=== PATIENT | female | born 1945 | race Caucasian/White ===

== ENCOUNTER 2018-03-13 15:47 | Emergency (ER) | payer OTHER, MEDICARE ==
--- OUTSIDE RECORDS SUMMARY | 2018-03-13 15:50 | XMS REPORT | Clinical Summary ---
:1945 Author Organization [facility] Address [address] [place] [address] Care Team Providers Name Role Phone Cortes Velez MD Primary Care Provider Allergies Active Allergy Reactions Severity Noted Date Comments No Known Drug Allergies 11/13/2015 Other reaction(s): NKDA Current Medications Prescription Sig. Disp. Refills Start Date End Date Status vitamin E 400 UNIT Take 400 Active capsule Units by mouth daily. ERGOCALCIFEROL, Take by Active VITAMIN D2, (VITAMIN mouth. D2 ORAL) esomeprazole Take by Active magnesium 22.3 mg mouth. capsule,delayed release(DR/EC) lithium (LITHOBID) Take 2 180 tablet 3 02/08/2017 Active 300 MG CR tablet tablets (600 mg total) by mouth nightly. rosuvastatin TAKE 1 90 tablet 0 03/21/2017 Active (CRESTOR) 10 MG TABLET(10 MG) tablet BY MOUTH EVERY NIGHT [facility] TAKE 1 TABLET 90 tablet 0 03/21/2017 Active 2.5-25-2 mg tablet BY MOUTH EVERY DAY metFORMIN TAKE 1 TABLET 90 tablet 2 08/04/2017 Active (GLUCOPHAGE) 500 mg BY MOUTH tablet EVERY DAY IBUPROFEN ORAL Take by mouth Active as needed. metFORMIN TAKE 1 90 tablet 0 01/15/2018 Active (GLUCOPHAGE) 500 mg TABLET(500 tablet MG) BY MOUTH EVERY DAY omega-3 acid ethyl TAKE 2 120 capsule 0 02/20/2018 Active esters (LOVAZA) 1 CAPSULES BY gram capsule MOUTH TWICE DAILY escitalopram TAKE 1 TABLET 180 tablet 0 02/22/2018 Active (LEXAPRO) 10 MG BY MOUTH tablet TWICE DAILY lithium (LITHOBID) TAKE 2 180 tablet 0 02/22/2018 Active 300 MG CR tablet TABLETS AT BEDTIME clonAZEPAM DISSOLVE 1 180 tablet 1 02/27/2018 Active (KlonoPIN) 0.25 MG TABLET BY 8 disintegrating MOUTH TWICE tablet DAILY levothyroxine TAKE 1 TABLET 90 tablet 0 03/05/2018 Active (SYNTHROID, LEVOXYL) BY MOUTH 25 mcg tablet EVERY DAY clonAZEPAM DISSOLVE ONE 1 11/27/2015 Discontinued (KlonoPIN) 0.25 MG TABLET ON 7 disintegrating TONGUE TWICE tablet DAILY NEEDED FOLBIC 2.5-25-2 mg TK 1 T PO QD 3 11/26/2015 Discontinued tablet 7 metFORMIN TAKE 1 TABLET 90 tablet 0 07/25/2016 Discontinued (GLUCOPHAGE) 500 MG BY MOUTH 7 tablet EVERY DAY rosuvastatin Take 1 tablet 90 tablet 1 10/04/2016 Discontinued (CRESTOR) 10 MG (10 mg total) 7 tablet by mouth nightly. levothyroxine TAKE 1 TABLET 90 tablet 3 11/02/2016 Discontinued (SYNTHROID, LEVOXYL) BY MOUTH 8 25 mcg tablet EVERY DAY omega-3 acid ethyl TAKE 2 120 capsule 3 12/08/2016 Discontinued esters (LOVAZA) 1 CAPSULE BY 7 gram capsule MOUTH TWICE DAILY QUEtiapine Take 2 180 tablet 2 02/08/2017 Discontinued (SEROquel) 25 MG tablets (50 8 tablet mg total) by mouth nightly for 90 days. TK 1 T PO QD escitalopram Take 1 tablet 180 tablet 3 02/08/2017 Discontinued (LEXAPRO) 10 MG (10 mg total) 7 tablet by mouth daily. TK 1 T PO BID rosuvastatin TAKE 1 90 tablet 0 03/21/2017 Discontinued (CRESTOR) 10 MG TABLET(10 MG) 7 tablet BY MOUTH EVERY NIGHT omega-3 acid ethyl TAKE 2 120 capsule 3 06/14/2017 Discontinued esters (LOVAZA) 1 CAPSULE BY 7 gram capsule MOUTH TWICE DAILY rosuvastatin TAKE 1 90 tablet 3 06/14/2017 Discontinued (CRESTOR) 10 MG TABLET(10 MG) 8 tablet BY MOUTH EVERY NIGHT metFORMIN Take 1 tablet 90 tablet 1 08/01/2017 Discontinued (GLUCOPHAGE) 500 mg (500 mg 8 tablet total) by mouth once daily. omega-3 acid ethyl TAKE 2 120 capsule 0 09/11/2017 Discontinued esters (LOVAZA) 1 CAPSULES BY 7 gram capsule MOUTH TWICE DAILY clonAZEPAM DISSOLVE ON 180 tablet 1 08/25/2017 (KlonoPIN) 0.25 MG THE TONGUE 1 8 disintegrating TABLET TWICE tablet A DAY escitalopram TAKE 1 TABLET 180 tablet 0 08/29/2017 Discontinued (LEXAPRO) 10 MG BY MOUTH 8 tablet TWICE DAILY omega-3 acid ethyl TAKE 2 360 capsule 0 09/12/2017 Discontinued esters (LOVAZA) 1 CAPSULES BY 8 gram capsule MOUTH TWICE DAILY QUEtiapine TAKE 2 180 tablet 2 10/19/2017 (SEROquel) 25 MG TABLETS BY 8 tablet MOUTH EVERY NIGHT omega-3 acid ethyl TAKE 2 120 capsule 0 11/17/2017 Discontinued esters (LOVAZA) 1 CAPSULES BY 8 gram capsule MOUTH TWICE DAILY escitalopram TAKE 1 TABLET 180 tablet 0 11/26/2017 Discontinued (LEXAPRO) 10 MG BY MOUTH 8 tablet TWICE DAILY levothyroxine TAKE 1 TABLET 90 tablet 0 12/01/2017 Discontinued (SYNTHROID, LEVOXYL) BY MOUTH 8 25 mcg tablet EVERY DAY clonAZEPAM Take 0.25 mg Discontinued (KlonoPIN) 0.25 MG by mouth 2 8 disintegrating (two) times a tablet day as needed for seizures. omega-3 acid ethyl TAKE 2 120 capsule 0 12/15/2017 Discontinued esters (LOVAZA) 1 CAPSULES BY 8 gram capsule MOUTH TWICE DAILY omega-3 acid ethyl TAKE 2 120 capsule 0 01/22/2018 Discontinued esters (LOVAZA) 1 CAPSULES BY 8 gram capsule MOUTH TWICE DAILY Active Problems Problem Noted Date De Quervain's disease (radial styloid tenosynovitis) 11/22/2017 Bipolar disorder 07/08/2016 Hypomania 07/08/2016 Marital dysfunction 07/08/2016 Tremor 07/08/2016 Tardive dyskinesia 07/08/2016 Anemia 11/13/2015 Bipolar affective disorder 11/13/2015 Bipolar 1 disorder 11/13/2015 Cellulitis 11/13/2015 Bipolar 1 disorder, depressed 11/13/2015 Diabetes mellitus 11/13/2015 Fatigue 11/13/2015 Gastroesophageal reflux disease 11/13/2015 Generalized anxiety disorder 11/13/2015 HLD (hyperlipidemia) 11/13/2015 Hypothyroidism 11/13/2015 Low back pain 11/13/2015 Bipolar I disorder with lillian 11/13/2015 Microcytic anemia 11/13/2015 Adiposity 11/13/2015 Pain of upper extremity 11/13/2015 Paronychia 11/13/2015 Major depressive disorder, recurrent episode, moderate 11/13/2015 Controlled type 2 diabetes mellitus without complication 11/13/2015 Encounters Date Type Specialty Care Team Description 03/01/2018 Refill Internal Medicine Cortes Velez MD 02/27/2018 Refill Psychiatry Catracho Joseph MD 02/22/2018 Refill Psychiatry Catracho Joseph MD 02/20/2018 Office Visit Psychiatry Catracho Joseph Bipolar 1 disorder MD Tommy 02/18/2018 Refill Internal Medicine Cortes Velez MD 02/01/2018 Telephone Internal Medicine Cortes Velez MD 01/19/2018 Refill Internal Medicine Cortes Velez MD 01/15/2018 Refill Internal Medicine Cortes Velez MD 01/10/2018 Lab Lab Cortes Velez MD 01/10/2018 Hospital Encounter Radiology Cortes Velez Abnormal mammjoe Nava MD 01/10/2018 Hospital Encounter Radiology Cortes Velez Abnormal mammjoe Nava MD 01/10/2018 Ancillary Orders Internal Medicine Cortes Velez Abnormal mammjoe Nava MD 12/21/2017 Telephone Radiology Benito Ocampo, ANA 12/18/2017 Telephone Radiology Ciara Ambrosio, ANA 12/15/2017 Refill Internal Medicine Cortes Velez MD 12/11/2017 Telephone Radiology Ciara Ambrosio, ANA 12/08/2017 Orders Only Internal Medicine Cortes Velez Abnormal mammogram MD Elijah (Primary Dx) 12/08/2017 Telephone Radiology Ciara Ambrosio RN 12/07/2017 Office Visit Psychiatry Catracho Joseph Bipolar 1 erik Sanders MD 12/07/2017 Hospital Encounter Radiology Cortes Velez Abnormal mammogram MD Elijah 12/07/2017 Hospital Encounter Radiology Cortes Velez Abnormal mammogram MD Elijah 12/07/2017 Ancillary Orders Internal Medicine Cortes Velez Abnormal mammogram MD Elijah 12/01/2017 Refill Internal Medicine Cortes Velez MD 11/26/2017 Refill Psychiatry Catracho Joseph MD 11/22/2017 Office Visit Orthopedic Surgery [place], De Quervain's disease Marie Jacobo, (radial styloid MD tenosynovitis) (Primary Dx) 11/15/2017 Refill Internal Medicine Cortes Velez MD 11/14/2017 Orders Only Internal Medicine Norma Metz, Bipolar affective MA disorder, remission status unspecified (Primary Dx) 11/13/2017 Telephone Internal Medicine Cortes Velez MD 10/19/2017 Office Visit Internal Medicine Cortes Velez Annual physical exam (Primary Dx); MD Elijah Controlled type 2 diabetes mellitus without complication, without long-term current use of insulin; Hypothyroidism, unspecified type; Hyperlipidemia, unspecified hyperlipidemia type; Bipolar 1 disorder; Abnormal mammogram; Vitamin D deficiency 10/18/2017 Refill Psychiatry Catracho Joseph MD 10/12/2017 Office Visit Orthopedic Surgery Nirav, Arthritis of midfoot Rowdy Blackwell MD (Primary Dx) 10/12/2017 Office Visit Orthopedic Surgery [place], De Quervain's tenosynovitis, left (Primary Dx); Marie Jacobo Primary osteoarthritis of first carpometacarpal joint of left hand 10/09/2017 Office Visit Psychiatry Catracho Joseph Bipolar 1 disorderTommy MD depressed 09/26/2017 Office Visit Orthopedic Surgery [place], Thumb pain, left ( Primary Dx); Marie Jacobo De Quervain's disease (tenosynovitis) 09/11/2017 Refill Internal Medicine Cortes Velez MD 08/29/2017 Refill Psychiatry Catracho Joseph MD 08/25/2017 Refill Psychiatry Catracho Joseph MD 08/16/2017 Refill Internal Medicine Cortes Velez MD 08/02/2017 Orders Only Psychiatry Catracho Joseph MD 08/01/2017 Orders Only Internal Medicine Norma Metz MA 07/24/2017 Refill Internal Medicine Cortes Velez MD 06/14/2017 Orders Only Internal Medicine Norma Metz MA 06/14/2017 Refill Psychiatry Catracho Joseph MD 05/30/2017 Refill Psychiatry Catracho Joseph MD 05/04/2017 Office Visit Psychiatry Catracho Joseph Bipolar 1 disorder, MD Tommy depressed 04/19/2017 Office Visit Internal Medicine Cortes Velez Hypothyroidism, unspecified type (Primary Dx); MD Elijah Controlled type 2 diabetes mellitus without complication, without long-term current use of insulin; Hyperlipidemia, unspecified hyperlipidemia type; Bipolar 1 disorder 03/21/2017 Refill Psychiatry Catracho Joseph MD 03/21/2017 Refill Internal Medicine Cortes Velez MD after 03/12/2017 Immunizations Name Dates Previously Given Next Due FLUZONE HIGH-DOSE PF 05/26/2015, 10/16/2014 Pneumococcal Conjugate 13-Valent 10/16/2014 Tdap 02/02/2015 Zoster 09/25/2008 Family History Medical History Relation Name Comments Alcohol abuse Brother nephew Navjot Hughes Alcohol abuse Brother nephew Dennys Hughes Drug abuse Brother My Son Grey Janice Alcohol abuse Father Angel Hughes Depression Maternal Grandfather Dalton Youssef Alcohol abuse Mother Mom Geraldine Hughes Atrial fibrillation Mother Mom Geraldine Hughes Hypertension Mother Mom Geraldine Hughes Alcohol abuse Sister Carlos Hughes Fernandez COPD Sister Carlos Hughes Fernandez Cancer Sister Carlos Hughes Fernandez Depression Sister Carlos Hughes Fernandez Drug abuse Sister Mominlaw Karla Janice Heart attack Son Colon cancer Neg Hx Colon polyps Neg Hx Relation Name Status Comments Brother nephew Navjot Saul Brother nephew Dennys Saul Brother My Son Grey Janice Father Angel Hughes MEDICAL HISTORY UNKNOWN Maternal Grandfather Dalton Youssef Mother Mom Geraldine Youssef Sual Sister Carlos Fernandez Sister Priya Sweeney Son Social History Tobacco Use Types Packs/Day Years Used Date Never Smoker Smokeless Tobacco: Never Used Comments: Never interested. 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 Sex Assigned at Date Recorded Not on file Last Filed Vital Signs Vital Sign Reading Time Taken Blood Pressure 145/93 10/19/2017 1:43 PM [facility] Pulse 77 10/19/2017 1:43 PM [facility] Temperature - - Respiratory Rate - - Oxygen Saturation - - Inhaled Oxygen Concentration - - Weight 78.3 kg (172 lb 9.6 oz) 10/19/2017 1:43 PM [facility] Height 154.9 cm (5' 1") 10/19/2017 1:43 PM [facility] Body Mass Index 32.61 10/19/2017 1:43 PM [facility] Plan of Treatment Date Type Specialty Care Team Description 04/19/2018 Office Visit Internal Medicine Cortes Velez MD [address] [place], [place] [id number] Health Maintenance Due Date Last Done Comments DIABETIC FOOT EXAM 1957 DIABETIC RETINAL EYE EXAM 1957 SHINGRIX VACCINE (#1) 1997 PNEUMOCOCCAL POLYSACCHARIDE VACCINE 2012 AGE 65 AND OVER URINE MICROALBUMIN 04/19/2018 04/19/2017, 06/02/2016 INFLUENZA VACCINE 04/25/2018 05/26/2015, 10/16/2014 BREAST CANCER SCREENING 01/11/2020 01/10/2018, 01/10/2018, 01/10/2018, Additional history exists COLON CANCER SCREENING 01/04/2027 01/04/2017 ZOSTER VACCINE Completed 09/25/2008 PNEUMOCOCCAL-13 Completed 10/16/2014 Procedures Procedure Name Priority Date/Time Associated Diagnosis Comments SURGICAL PATHOLOGY Routine 01/10/2018 2:36 Results for this REQUEST PM CDT procedure are in the results section. MAMMO DIAGNOSTIC W Routine 01/10/2018 11:40 Abnormal mammogram Results for this CAD RIGHT AM CDT procedure are in the results section. US BREAST BIOPSY Routine 01/10/2018 11:32 Abnormal mammogram Results for this RIGHT AM CDT procedure are in the results section. US BREAST COMPLETE Routine 12/07/2017 3:02 Abnormal mammogram Results for this BILATERAL PM CDT procedure are in the results section. MAMMO DIAGNOSTIC W Routine 12/07/2017 2:30 Abnormal mammogram Results for this CAD BILATERAL PM CDT procedure are in the results section. LITHIUM LEVEL Routine 11/14/2017 3:04 Bipolar affective Results for this PM [facility] disorder, remission procedure are in status unspecified the results section. VITAMIN D 25 HYDROXY Routine 11/14/2017 3:00 Vitamin D deficiency Results for this LEVEL PM [facility] procedure are in the results section. HEMOGLOBIN A1C Routine 11/14/2017 3:00 Controlled type 2 Results for this PM [facility] diabetes mellitus procedure are in without complication, the results without long-term section. current use of insulin LIPID PANEL Routine 11/14/2017 3:00 Controlled type 2 Results for this PM [facility] diabetes mellitus procedure are in without complication, the results without long-term section. current use of insulin Hyperlipidemia, unspecified hyperlipidemia type THYROID STIMULATING Routine 11/14/2017 3:00 Hypothyroidism, Results for this HORMONE PM [facility] unspecified type procedure are in the results section. COMPREHENSIVE Routine 11/14/2017 3:00 Controlled type 2 Results for this METABOLIC PANEL PM [facility] diabetes mellitus procedure are in without complication, the results without long-term section. current use of insulin Hyperlipidemia, unspecified hyperlipidemia type CBC WITH PLATELET AND Routine 11/14/2017 3:00 Controlled type 2 Results for this DIFFERENTIAL PM [facility] diabetes mellitus procedure are in without complication, the results without long-term section. current use of insulin Hyperlipidemia, unspecified hyperlipidemia type ECG 12-LEAD Routine 10/19/2017 1:43 Controlled type 2 Results for this PM [facility] diabetes mellitus procedure are in without complication, the results without long-term section. current use of insulin Hyperlipidemia, unspecified hyperlipidemia type XR FOOT 3 VW Routine 10/12/2017 3:31 Arthritis of midfoot Results for this BILATERAL PM [facility] procedure are in the results section. [place] INJECT TENDON Routine 10/12/2017 3:02 De Quervain's Results for this SHEATH/LIGAMENT PM [facility] tenosynovitis, left procedure are in the results section. XR FINGER 2+ VW LEFT Routine 09/26/2017 1:10 Thumb pain, left Results for this PM [facility] procedure are in the results section. LITHIUM LEVEL Routine 08/02/2017 11:30 Results for this AM [facility] procedure are in the results section. LITHIUM LEVEL Routine 04/19/2017 2:41 Bipolar 1 disorder Results for this PM CDT procedure are in the results section. MICROALBUMIN, URINE, Routine 04/19/2017 2:41 Controlled type 2 Results for this RANDOM PM CDT diabetes mellitus procedure are in without complication, the results without long-term section. current use of insulin URINALYSIS, AUTOMATED Routine 04/19/2017 2:41 Controlled type 2 Results for this WITH MICROSCOPY PM CDT diabetes mellitus procedure are in without complication, the results without long-term section. current use of insulin COMPREHENSIVE Routine 04/19/2017 2:41 Controlled type 2 Results for this METABOLIC PANEL PM CDT diabetes mellitus procedure are in without complication, the results without long-term section. current use of insulin Hyperlipidemia, unspecified hyperlipidemia type LIPID PANEL Routine 04/19/2017 2:41 Controlled type 2 Results for this PM CDT diabetes mellitus procedure are in without complication, the results without long-term section. current use of insulin Hyperlipidemia, unspecified hyperlipidemia type THYROID STIMULATING Routine 04/19/2017 2:41 Hypothyroidism, Results for this HORMONE PM CDT unspecified type procedure are in the results section. HEMOGLOBIN A1C Routine 04/19/2017 2:41 Controlled type 2 Results for this PM CDT diabetes mellitus procedure are in without complication, the results without long-term section. current use of insulin after 03/12/2017 Results Surgical pathology request (01/10/2018 2:36 PM) [facility] DEPARTMENT OF PATHOLOGY AND GENOMIC MEDICINE Surgical pathology report See link below for PDF [facility] DEPARTMENT OF Lab Report PATHOLOGY AND GENOMIC MEDICINE Result status This is Final Report to [facility] DEPARTMENT OF [id number] PATHOLOGY AND GENOMIC MEDICINE Performing Organization Address City/State/Zipcode Phone Number [facility] DEPARTMENT OF PATHOLOGY AND [address] [place] [address] GENOMIC MEDICINE Mammo Diagnostic w Cad Right (01/10/2018 11:40 AM) Addenda Addendum by Syed Lang MD on 01/15/2018 3:29 PM ADDENDUM #1 Addendum report for pathology. A right breast 6 o'clock yielded a intraductal papilloma. This also had florid epithelial hyperplasia. Usual ductal hyperplasia, columnar cell change and hypertrophy and microcalcification associated with intraductal papilloma and benign lobules. Reporting pathologist Dr. Vernell Ibrahim M.D. 01/11/2018 IMPRESSION: BI-RADS Category 3 probably benign findings. Recommend 6 month mammogram follow-up to ensure stability. There is some controversy and management of intraductal papillomas, recommend surgical consultation as well. Narrative Performed At PROCEDURE: US BREAST BIOPSY RIGHT, MAMMO DIAGNOSTIC W CAD RIGHT HM RADIANT Right breast ultrasound-guided biopsy. After informed consent and a timeout procedure the area of interest seen at the 6 o'clock position in the right breast at mid depth show a 5 mm oval shaped hypoechoic mass . 14-gauge biopsy device utilized. Several cores were obtained. After after ultrasound-guided biopsy 2 mammogram views were obtained. A coil clip was placed. The post procedure mammogram shows the clip at the 6 o'clock position in the right breast. No complications seen. IMPRESSION:Successful ultrasound-guided biopsy and clip placement. RECOMMENDATION: Await histopathology BI-RADS 0: Incomplete. Awaiting histopathology [facility]-[id number] Performing Organization Address City/State/Zipcode Phone Number [facility] [address] [place] [address] US Breast Biopsy Right (01/10/2018 11:32 AM) Addenda Addendum by Syed Lang MD on 01/15/2018 3:29 PM ADDENDUM #1 Addendum report for pathology. A right breast 6 o'clock yielded a intraductal papilloma. This also had florid epithelial hyperplasia. Usual ductal hyperplasia, columnar cell change and hypertrophy and microcalcification associated with intraductal papilloma and benign lobules. Reporting pathologist Dr. Vernell Ibrahim M.D. 01/11/2018 IMPRESSION: BI-RADS Category 3 probably benign findings. Recommend 6 month mammogram follow-up to ensure stability. There is some controversy and management of intraductal papillomas, recommend surgical consultation as well. Narrative Performed At PROCEDURE: US BREAST BIOPSY RIGHT, MAMMO DIAGNOSTIC W CAD RIGHT HM RADIANT Right breast ultrasound-guided biopsy. After informed consent and a timeout procedure the area of interest seen at the 6 o'clock position in the right breast at mid depth show a 5 mm oval shaped hypoechoic mass . 14-gauge biopsy device utilized. Several cores were obtained. After after ultrasound-guided biopsy 2 mammogram views were obtained. A coil clip was placed. The post procedure mammogram shows the clip at the 6 o'clock position in the right breast. No complications seen. IMPRESSION:Successful ultrasound-guided biopsy and clip placement. RECOMMENDATION: Await histopathology BI-RADS 0: Incomplete. Awaiting histopathology [facility]-[id number] Performing Organization Address [facility] [place] [facility] [address] [place] [address] US Breast Complete Bilateral (12/07/2017 3:02 PM) Narrative Performed At EXAMINATION:MAMMO DIAGNOSTIC W CAD BILATERAL, US BREAST COMPLETE HM RADIANT BILATERAL INDICATION:72-year-old female with no current breast complaints on questionnaire. History of other abnormal and inconclusive findings on mammogram in the past. COMPARISON:2015 through October 2016. FINDINGS: The breasts are heterogeneously dense which, may obscure small masses.There was some mild scattered irregular focal asymmetries seen in both right and left MLO views and CC views. 90 degree lateral views were obtained however and shows some mild persistent bilateral asymmetries in the upper anterior third of both breasts and then a focal asymmetry in the inferior right breast. Bilateral whole breast sonography was performed with close supervision. This included sonographic evaluation of all 4 quadrants as well as the subareolar regions bilaterally.In the right breast there is a complex cyst or small solid mass noted at the 6 o'clock position measuring about 5 mm in diameter. This appears new compared to prior exams. Left breast is unremarkable. IMPRESSION:Mildly suspicious right breast complex cyst or small solid mass. RECOMMENDATION: Recommend ultrasound-guided biopsy. BI-RADS 4: SUSPICIOUS. [facility]-[id number] Performing Organization Address [facility] [place] [facility] [address] [place] [address] Mammo Diagnostic w Cad Bilateral (12/07/2017 2:30 PM) Narrative Performed At EXAMINATION:MAMMO DIAGNOSTIC W CAD BILATERAL, US BREAST COMPLETE HM RADIANT BILATERAL INDICATION:72-year-old female with no current breast complaints on questionnaire. History of other abnormal and inconclusive findings on mammogram in the past. COMPARISON:2015 through October 2016. FINDINGS: The breasts are heterogeneously dense which, may obscure small masses.There was some mild scattered irregular focal asymmetries seen in both right and left MLO views and CC views. 90 degree lateral views were obtained however and shows some mild persistent bilateral asymmetries in the upper anterior third of both breasts and then a focal asymmetry in the inferior right breast. Bilateral whole breast sonography was performed with close supervision. This included sonographic evaluation of all 4 quadrants as well as the subareolar regions bilaterally.In the right breast there is a complex cyst or small solid mass noted at the 6 o'clock position measuring about 5 mm in diameter. This appears new compared to prior exams. Left breast is unremarkable. IMPRESSION:Mildly suspicious right breast complex cyst or small solid mass. RECOMMENDATION: Recommend ultrasound-guided biopsy. BI-RADS 4: SUSPICIOUS. [facility]-[id number] Performing Organization Address City/[facility] Phone Number [facility] [address] [place] [address] [place] level (11/14/2017 3:04 PM)Only the most recent of3 resultswithin the time period is included. [place] 0.7 0.6 - 1.2 mmol/L Stevie [facility]PAR Specimen Blood Narrative Performed At FASTING:YES [facility] FASTING: YES Resulting Agency Comment Performing Organization Information: Site ID: [id number] Name: [facility] Address: [address] [place] [phone] Director: Marlin Acosta MD Performing Organization Address [facility] Phone [place] [address] Vitamin D 25 hydroxy level (11/14/2017 3:00 PM) Vitamin D, 25-hydroxy 30 30 - 100 ng/mL Stevie Comment: CASPAR Vitamin D Status 25-OH Vitamin D: Deficiency:<20 ng/mL Insufficiency: 20 - 29 ng/mL Optimal: > or=30 ng/mL For 25-OH Vitamin D testing on patients on D2-supplementation and patients for whom quantitation of D2 and D3 fractions is required, the QuestAssureD(TM) 25-OH VIT D, (D2,D3), LC/MS/MS is recommended: order code 86233 (patients >2yrs). For more information on this test, go to: http://education.[employer]/faq/LHI892 (This link is being provided for informational/educational purposes only.) Specimen Blood Narrative Performed At FASTING:YES [facility] PATIENT UNABLE TO VOID; ADVISED TO RETURN FOR COLLECTION. FASTING: YES Resulting Agency Comment Performing Organization Information: Site ID: [id number] Name: [facility] Lab Address: [address] [place] [phone] Director: Marlin Acosta MD Performing Organization Address [facility]/Zipcode Phone Number EMIL STEIN [employer] [facility] [address] [place] [address] [phone] CBC with platelet and differential (11/14/2017 3:00 PM) WBC 6.2 3.8 - 10.8 Thousand/uL [facility] RBC 4.52 3.80 - 5.10 Million/uL [facility] HGB 11.2 (L) 11.7 - 15.5 g/dL [facility] HCT 36.1 35.0 - 45.0 % [facility] MCV 79.9 (L) 80.0 - 100.0 fL [facility] MCH 24.8 (L) 27.0 - 33.0 pg [facility] MCHC 31.0 (L) 32.0 - 36.0 g/dL [facility] RDW 14.6 11.0 - 15.0 % [facility] Platelet count 242 140 - 400 Thousand/uL [facility] MPV 11.6 7.5 - 12.5 fL [facility] Neutrophils, absolute 3,236 1,500 - 7,800 cells/uL [facility] Lymphocytes, absolute 2,244 850 - 3,900 cells/uL [facility] Monocytes, absolute 378 200 - 950 cells/uL [facility] Eosinophils, absolute 279 15 - 500 cells/uL [facility] Basophils, absolute 62 0 - 200 cells/uL [facility] Neutrophils 52.2 % [facility] Lymphocytes 36.2 % [facility] Monocytes 6.1 % [facility] Eosinophils 4.5 % [facility] Basophils + RC 1.0 % [facility] Specimen Blood Narrative Performed At FASTING:YES [facility] PATIENT UNABLE TO VOID; ADVISED TO RETURN FOR COLLECTION. FASTING: YES Resulting Agency Comment Performing Organization Information: Site ID: [id number] Name: [facility] Lab Address: [address] [phone] Director: Marlin Acosta MD Performing Organization Address [facility]/Zipcode Phone Number EMIL Ste[facility] [address] [place] [phone] Thyroid stimulating hormone (11/14/2017 3:00 PM)Only the most recent of2 resultswithin the time period is included. TSH 1.20 0.40 - 4.50 mIU/L [facility] Specimen Blood Narrative Performed At FASTING:YES [facility] PATIENT UNABLE TO VOID; ADVISED TO RETURN FOR COLLECTION. FASTING: YES Resulting Agency Comment Performing Organization Information: Site ID: [id number] Name: [facility] Lab Address: [address] [place] [phone] Director: Marlin Acosta MD Performing Organization Address [facility] [place] [address] Hemoglobin A1c (11/14/2017 3:00 PM)Only the most recent of2 resultswithin the time period is included. Hemoglobin A1C 5.7 (H) <5.7 % of total [facility] Comment: Hgb [facility] For someone without known diabetes, a hemoglobin A1c value between 5.7% and 6.4% is consistent with prediabetes and should be confirmed with a follow-up test. For someone with known diabetes, a value <7% indicates that their diabetes is well controlled. A1c targets should be individualized based on duration of diabetes, age, comorbid conditions, and other considerations. This assay result is consistent with an increased risk of diabetes. Currently, no consensus exists regarding use of hemoglobin A1c for diagnosis of diabetes for children. Specimen Blood Narrative Performed At FASTING:YES [facility] PATIENT UNABLE TO VOID; ADVISED TO RETURN FOR COLLECTION. FASTING: YES Resulting Agency Comment Performing Organization Information: Site ID: [facility] Name: [facility] Lab Address: [address] [place] [phone] Director: Marlin Acosta MD Performing Organization Address [facility] Phone Number [facility] [address] [address] Lipid panel (11/14/2017 3:00 PM)Only the most recent of2 resultswithin the time period is included. Cholesterol, total 185 <200 mg/dL [facility] HDL cholesterol 78 >50 mg/dL [facility] Triglycerides 113 <150 mg/dL [facility] LDL cholesterol 86 mg/dL (calc) Stevie calculated Comment: [facility] Reference range: <100 Desirable range <100 mg/dL for patients with CHD or diabetes and <70 mg/dL for diabetic patients with known heart disease. LDL-C is now calculated using the Chiquita calculation, which is a validated novel method providing better accuracy than the Friedewald equation in the estimation of LDL-C. Gilmer ROBBINS et al. PETR. 2013;310(19): 3798-1245 (http://education.Nexus eWater/faq/XLS237) Cholesterol/HDL ratio 2.4 <5.0 (calc) [facility] Non-HDL cholesterol 107 <130 mg/dL Stevie Comment: (calc) [facility] For patients with diabetes plus 1 major ASCVD risk factor, treating to a non-HDL-C goal of <100 mg/dL (LDL-C of <70 mg/dL) is considered a therapeutic option. Specimen Blood Narrative Performed At FASTING:YES [facility] PATIENT UNABLE TO VOID; ADVISED TO RETURN FOR COLLECTION. FASTING: YES Resulting Agency Comment Performing Organization Information: Site ID: [id number] Name: [id number] Lab Address: [address] [place] [phone] Director: Marlin Acosta MD Performing Organization Address City/State/Zipcode Phone Number [facility] [place] [address] Comprehensive metabolic panel (11/14/2017 3:00 PM)Only the most recent of2 resultswithin the time period is included. Glucose 92 65 - 99 mg/dL Ste[facility] Comment: [facility] Fasting reference interval BUN, whole blood 16 7 - 25 mg/dL [facility] Creatinine 1.14 (H) 0.60 - 0.93 Stevie Comment: mg/dL [facility] For patients >49 years of age, the reference limit for Creatinine is approximately 13% higher for people identified as -Beninese. EGFR Non-Afr. Beninese 49 (L) > OR=60 Stevie mL/min/1.73m2 [facility] EGFR 56 (L) > OR=60 [facility] mL/min/1.73m2 [facility] BUN/creatinine ratio 14 6 - 22 (calc) [facility] Sodium 142 135 - 146 mmol/L [facility] Potassium 4.9 3.5 - 5.3 mmol/L [facility] Chloride 108 98 - 110 mmol/L [facility] CO2 31 20 - 31 mmol/L [facility] Calcium 9.8 8.6 - 10.4 mg/dL [facility] Protein 6.8 6.1 - 8.1 g/dL [facility] Albumin, S 4.4 3.6 - 5.1 g/dL [facility] Globulin, total 2.4 1.9 - 3.7 g/dL [facility] [employer] (calc) [facility] Albumin/globulin ratio 1.8 1.0 - 2.5 (calc) [facility] Total bilirubin 0.4 0.2 - 1.2 mg/dL [facility] Alkaline phosphatase 71 33 - 130 U/L [facility] AST 37 (H) 10 - 35 U/L [facility] ALT 55 (H) 6 - 29 U/L [facility] Specimen Blood Narrative Performed At FASTING:YES [facility] PATIENT UNABLE TO VOID; ADVISED TO RETURN FOR COLLECTION. FASTING: YES Resulting Agency Comment Performing Organization Information: Site ID: RGA Name: [facility] Lab Address: [address] [place] [phone] Director: Marlin Acosta MD Performing Organization Address City/[facility] Phone Number [facility] [address] [place] [phone] ECG 12 lead (10/19/2017 1:43 PM) Ventricular rate 67 [facility] Atrial rate 67 [facility] OH interval 238 [facility] QRSD interval 88 [facility] QT interval 418 [facility] QTC interval 441 [facility] P axis 1 35 [facility] QRS axis 1 15 [facility] T wave axis 41 [facility] EKG impression Sinus rhythm with 1st degree AV [facility] block-Nonspecific T wave abnormality-Abnormal ECG-No previous ECGs available- Performing Organization Address [facility]ome Phone Number [facility] [address] [place] [address] XR Foot 3 Vw Bilateral (10/12/2017 3:31 PM) Narrative Performed At 3 views of both feet in weightbearing fashion shows no acute osseous HM RADIANT abnormalities. There is a mild amount of arthritis of the right hallux metatarsophalangeal joint. The joints appear to be well-maintained. There is a cavus deformity bilaterally. 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 Performing Organization Address [facility] [place] Phone Number [facility] [address] [place] [address] Hand/Upper Extremity Injection/Arthrocentesis (10/12/2017 3:02 PM) Narrative Performed At Marie Malagon MD 10/12/20173:02 PM Hand/Upper Extremity Injection/Arthrocentesis Date/Time: 10/12/2017 3:00 PM Consent given by: patient Site marked: site marked Timeout: Immediately prior to procedure a time out was called to verify the correct patient, procedure, equipment, logistics support and site/side marked as required Supporting Documentation Indications: pain, tendon swelling and therapeutic Procedure Details Condition: de Quervain's tenosynovitis Site: R extensor compartment 1 Preparation: Patient was prepped and draped in the usual sterile fashion Right side: Needle size: 25 G Patient tolerance: patient tolerated the procedure well with no immediate complications Right Extensor Compartment 1 Medications administered: 0.5 mL lidocaine 10 mg/mL (1 %); 1 mL triamcinolone acetonide 40 mg/mL Injection Type: tendon sheath Platelet Rich Plasma Used: no PRP Used Fluoroscopic Needle Guidance Used: no fluoroscopic needle guidance XR Finger 2+ Vw Left (09/26/2017 1:10 PM) Narrative Performed At 3 view of left thumb is negative for fracture/dislocation, 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 Performing Organization Address [facility] [place] Phone Number [facility] [address] [place] [address] Microalbumin, urine, random (04/19/2017 2:41 PM) Microalbumin, urine 3.0 See Note: mg/dL Ste[facility] Comment: [facility] Reference Range: Reference Range Not established [facility] Comment: [facility] The ADA defines abnormalities in albumin excretion as follows: Category Result (mcg/mg creatinine) Normal<30 Microalbuminuria 30-299 Clinical albuminuria > JS=627 The ADA recommends that at least two of three specimens collected within a 3-6 month period be abnormal before considering a patient to be within a diagnostic category. Specimen Urine Narrative Performed At FASTING:YES [facility] Resulting Agency Comment Performing Organization Information: Site ID: RGA Name: [facility] Lab Address: [address] [place] [phone] Director: Marlin Acosta MD Performing Organization Address City/[facility]/Zipcode Phone Number [facility] [address] [place], [place] [phone] Urinalysis, automated with microscopy (04/19/2017 2:41 PM) Color, UA YELLOW YELLOW [facility] Appearance CLEAR CLEAR [facility] Specific gravity, urine 1.016 1.001 - 1.035 [facility] pH, urine 6.0 5.0 - 8.0 [facility] Glucose, urine NEGATIVE NEGATIVE [facility] Bilirubin, UA NEGATIVE NEGATIVE [facility] Ketones, UA NEGATIVE NEGATIVE [facility] Occult blood, urine NEGATIVE NEGATIVE [facility] Protein, UA NEGATIVE NEGATIVE [facility] Nitrite, UA NEGATIVE NEGATIVE [facility] Leukocyte esterase, UA 2+ (A) NEGATIVE [facility] WBC, UA 10-20 (A) < OR=5 /HPF [facility] RBC, UA 0-2 < OR=2 /HPF [facility] Squamous epithelial cells, UA 10-20 (A) < OR=5 /HPF [facility] Bacteria, UA NONE SEEN NONE SEEN /HPF [facility] Hyaline casts, UA NONE SEEN NONE SEEN /LPF [facility] Specimen Urine Narrative Performed At FASTING:YES [facility] Resulting Agency Comment Performing Organization Information: Site ID: RGA Name: [facility] Lab Address: [address] [place] [address] Director: Marlin Acosta MD Performing Organization Address City/[facility]ode Phone Number [facility] [address] [place], [place] [phone] after 03/12/2017 Insurance Payer Benefit Plan / Group Subscriber ID Type Phone Address MEDICARE MEDICARE PART A AND B xxxxxxxxxx Medicare [place], [place] AARP AARP SUPPLEMENT xxxxxxxxxxx Commercial Work: [address] [phone] [address] Home: [phone]
[2018-03-13] MEDS ORDERED: METHYLPREDNISOLONE 125 MG INJ ONE (16:21)
[2018-03-13] MEDS ORDERED: hydrOXYzine HCl 25 MG TAB ONE (16:21)
--- NOTE | 2018-03-13 16:28 | EDPHYS ---
Physician Documentation [facility] Name: Shanelle Camacho Age: 72 yrs Sex: Female : 1945 Arrival Date: 03/13/2018 Time: 15:50 Bed 20 Private MD: out of town, doctor ED Physician Dmitriy Rodriguez HPI: 03/13 16:22 This 72 yrs old Female presents to ER via Ambulatory with complaints of rn Allergic Reaction. 16:22 The patient presents with itching, rash. rn 16:22 Onset: The symptoms/episode began/occurred 4 day(s) ago. Associated signs and symptoms: rn Pertinent positives: hives, rash. Possible causes: Severity of symptoms: At their worst the symptoms were mild in the emergency department the symptoms are unchanged. The patient has not experienced similar symptoms in the past. Reports just started on new medication this past week for tardive dyskinesia, now having rash/hives/itching for 4 days, no trouble breathing or swallowing.. Historical: - Allergies: 15:56 No Known Allergies; aa5 - Home Meds: 16:28 unknown names takes approx 12 [Active]; tw2 - PMHx: 15:56 Bipolar disorder; Diabetes - NIDDM; GERD; Hyperlipidemia; tardive dyskenisia; aa5 - PSHx: 15:56 Tonsillectomy; aa5 - Immunization history:: Adult Immunizations unknown. - Social history:: Smoking status: Patient/guardian denies using tobacco. - Ebola Screening: : No symptoms or risks identified at this time. - Family history:: not pertinent. - Hospitalizations: : No recent hospitalization is reported. ROS: 16:22 Constitutional: Negative for fever, chills, and weight loss, Eyes: Negative for injury, rn pain, redness, and discharge, Neck: Negative for injury, pain, and swelling, Cardiovascular: Negative for chest pain, palpitations, and edema, Respiratory: Negative for shortness of breath, cough, wheezing, and pleuritic chest pain, Abdomen/GI: Negative for abdominal pain, nausea, vomiting, diarrhea, and constipation, MS/Extremity: Negative for injury and deformity, Skin: + rash /hives Neuro: Negative for headache, weakness, numbness, tingling, and seizure. Exam: 16:22 Constitutional: This is a well developed, well nourished patient who is awake, alert, rn and in no acute distress. Head/Face: Normocephalic, atraumatic. ENT: no oral swelling or stridor Cardiovascular: Regular rate and rhythm with a normal S1 and S2. No gallops, murmurs, or rubs. Normal PMI, no JVD. No pulse deficits. Respiratory: Lungs have equal breath sounds bilaterally, clear to auscultation and percussion. No rales, rhonchi or wheezes noted. No increased work of breathing, no retractions or nasal flaring. Abdomen/GI: Soft, non-tender, with normal bowel sounds. No distension or tympany. No guarding or rebound. No evidence of tenderness throughout. Skin: + diffuse urticaria Vital Signs: 15:56 BP 116 / 83; Pulse 84; Resp 18 S; Temp 98.3; Pulse Ox 100% on R/A; Weight 79.38 kg (R); aa5 Height 5 ft. 2 in. (157.48 cm) (R); Pain 0/10; 16:56 BP 117 / 73; Pulse 72; Resp 17; Pulse Ox 96% on R/A; tw2 15:56 Body Mass Index 32.01 (79.38 kg, 157.48 cm) aa5 MDM: 16:03 Patient medically screened. rn 16:22 Differential diagnosis: non IgE mediated drug reaction urticaria. Data reviewed: vital rn signs, nurses notes, and as a result, I will discharge patient. Counseling: I had a detailed discussion with the patient and/or guardian regarding: the historical points, exam findings, and any diagnostic results supporting the discharge/admit diagnosis, the need for outpatient follow up, to return to the emergency department if symptoms worsen or persist or if there are any questions or concerns that arise at home. Special discussion: I discussed with the patient/guardian in detail that at this point there is no indication for admission to the hospital. It is understood, however, that if the symptoms persist or worsen the patient needs to return immediately for re-evaluation. Administered Medications: 16:22 Drug: SOLU-Medrol 125 mg Route: IM; Site: right gluteus; tw2 16:55 Follow up: Response: No adverse reaction tw2 16:24 Drug: Atarax 50 mg Route: PO; tw2 16:55 Follow up: Response: No adverse reaction; Marked relief of symptoms tw2 Disposition: 03/13/18 16:27 Discharged to Home. Impression: Urticaria, unspecified. - Condition is Stable. - Discharge Instructions: Hives. - Prescriptions for Hydroxyzine HCl 50 mg Oral Tablet - take 1 tablet by ORAL route every 8 hours As needed; 20 tablet. Prednisone 20 mg Oral Tablet - take 3 tablet by ORAL route once daily for 5 days; 15 tablet. - Medication Reconciliation Form, Thank You Letter, Antibiotic Education, Prescription Opioid Use form. - Follow up: Private Physician; When: As needed; Reason: Recheck today's complaints, Re-evaluation by your physician. - Problem is new. - Symptoms have improved. Signatures: Dmitriy Rodriguez MD MD rn Calderon, Audri, RN RN aa5 Mary Anne Dolan RN RN tw2 Corrections: (The following items were deleted from the chart) 16:56 16:27 03/13/2018 16:27 Discharged to Home. Impression: Urticaria, unspecified. tw2 Condition is Stable. Forms are Medication Reconciliation Form, Thank You Letter, Antibiotic Education, Prescription Opioid Use. Follow up: Private Physician; When: As needed; Reason: Recheck today's complaints, Re-evaluation by your physician. Problem is new. Symptoms have improved. rn
--- NOTE | 2018-03-13 16:28 | ER ---
Nurse's Notes [facility] Name: Shanelle Camacho Age: 72 yrs Sex: Female : 1945 Arrival Date: 03/13/2018 Time: 15:50 Bed 20 Private MD: out of town, doctor Diagnosis: Urticaria, unspecified Presentation: 03/13 15:55 Presenting complaint: Patient states: hives all over body since Monday. Pt denies SOB. aa5 Transition of care: patient was not received from another setting of care. Onset: The symptoms/episode began/occurred 4 day(s) ago. Anaphylaxis evaluation, no signs or symptoms of anaphylaxis were noted. Onset of symptoms was February 2018. Risk Assessment: Do you want to hurt yourself or someone else? Patient reports no desire to harm self or others. Initial Sepsis Screen: Does the patient meet any 2 criteria? No. Patient's initial sepsis screen is negative. Does the patient have a suspected source of infection? No. Patient's initial sepsis screen is negative. Care prior to arrival: None. 15:55 Method Of Arrival: Ambulatory aa5 15:55 Acuity: NILO 3 aa5 Historical: - Allergies: 15:56 No Known Allergies; aa5 - Home Meds: 16:28 unknown names takes approx 12 [Active]; tw2 - PMHx: 15:56 Bipolar disorder; Diabetes - NIDDM; GERD; Hyperlipidemia; tardive dyskenisia; aa5 - PSHx: 15:56 Tonsillectomy; aa5 - Immunization history:: Adult Immunizations unknown. - Social history:: Smoking status: Patient/guardian denies using tobacco. - Ebola Screening: : No symptoms or risks identified at this time. - Family history:: not pertinent. - Hospitalizations: : No recent hospitalization is reported. Screenin:28 Abuse screen: Denies threats or abuse. Nutritional screening: No deficits noted. tw2 Tuberculosis screening: No symptoms or risk factors identified. Fall Risk None identified. Assessment: 16:26 General: Appears uncomfortable, obese, Behavior is calm, cooperative, appropriate for tw2 age. Pain: Denies pain. Neuro: Level of Consciousness is awake, alert, obeys commands, Oriented to person, place, time, situation. Cardiovascular: Denies chest pain, shortness of breath, Capillary refill < 3 seconds Patient's skin is warm and dry. Respiratory: Airway is patent Respiratory effort is even, unlabored, Breath sounds are clear bilaterally. GI: No signs and/or symptoms were reported involving the gastrointestinal system. : No signs and/or symptoms were reported regarding the genitourinary system. Derm: Rash noted that is red, raised, urticaria, on all over. Musculoskeletal: Range of motion: intact in all extremities. 16:56 Reassessment: Patient appears in no apparent distress at this time. No changes from tw2 previously documented assessment. Patient and/or family updated on plan of care and expected duration. Pain level reassessed. Patient is alert, oriented x 3, equal unlabored respirations, skin warm/dry/pink. Patient states feeling better. Patient states symptoms have improved. Vital Signs: 15:56 BP 116 / 83; Pulse 84; Resp 18 S; Temp 98.3; Pulse Ox 100% on R/A; Weight 79.38 kg (R); aa5 Height 5 ft. 2 in. (157.48 cm) (R); Pain 0/10; 16:56 BP 117 / 73; Pulse 72; Resp 17; Pulse Ox 96% on R/A; tw2 15:56 Body Mass Index 32.01 (79.38 kg, 157.48 cm) aa5 ED Course: 15:50 Patient arrived in ED. sb2 15:50 out of town, doctor is Private Physician. sb2 15:56 Triage completed. aa5 15:56 Arm band placed on. aa5 16:03 Dmitriy Rodriguez MD is Attending Physician. rn 16:24 Mary Anne Dolan RN is Primary Nurse. tw2 16:28 Bed in low position. Side rails up X 1. Adult w/ patient. Pulse ox on. NIBP on. Warm tw2 blanket given. 16:31 No provider procedures requiring assistance completed. Patient did not have IV access tw2 during this emergency room visit. 16:33 Awaitin min observation after medication PRIOR to discharge. tw2 Administered Medications: 16:22 Drug: SOLU-Medrol 125 mg Route: IM; Site: right gluteus; tw2 16:55 Follow up: Response: No adverse reaction tw2 16:24 Drug: Atarax 50 mg Route: PO; tw2 16:55 Follow up: Response: No adverse reaction; Marked relief of symptoms tw2 Outcome: 16:27 Discharge ordered by . rn 16:55 Discharged to home ambulatory, with significant other. tw2 16:55 Condition: stable 16:55 Discharge instructions given to patient, significant other, Instructed on discharge instructions, follow up and referral plans. medication usage, Demonstrated understanding of instructions, follow-up care, medications, Prescriptions given X 2. 16:56 Patient left the ED. tw2 Signatures: Dmitriy Rodriguez MD MD rn Calderon, Audri RN RN aa5 Mary Anne Dolan RN RN tw2 Renetta Stafford sb2
== END 2018-03-13 16:56 | disposition home or self-care (01) ==
LOC: ER 15:47
DX: L50.9 Urticaria, unspecified (principal); F31.9 Bipolar disorder, unspecified; E11.9 Type 2 diabetes mellitus without complications; K21.9 Gastro-esophageal reflux disease without esophagitis; E78.5 Hyperlipidemia, unspecified; G24.01 Drug induced subacute dyskinesia
CPT/HCPCS: 96372; 99283; J2930

== ENCOUNTER 2024-03-11 19:47 | Emergency (ER) | payer OTHER, MEDICARE ==
[2024-03-11] MEDS ORDERED: HYDROCODONE/APAP 7.5/325 MG TAB ONE (20:14)
--- NOTE | 2024-03-11 20:46 | RAD REPORT ---
EXAM DESCRIPTION: CT - [id number] - 03/11/2024 8:32 pm CLINICAL HISTORY: fall COMPARISON: No comparisons TECHNIQUE: Axial thin cut noncontrast CT images of the head were obtained. Axial thin cut noncontrast CT images of the cervical spine were obtained. Multiplanar reformatted images were generated and reviewed. All CT scans are performed using dose optimization technique as appropriate and may include automated exposure control or mA/KV adjustment according to patient size. FINDINGS: CT HEAD WITHOUT CONTRAST: No acute hemorrhage, hydrocephalus or extra-axial collection is identified.No areas of brain edema or midline shift. The paranasal sinuses and mastoids are clear.The calvarium is intact. CT CERVICAL SPINE WITHOUT CONTRAST: No fracture or subluxation. Up to moderate multilevel degenerative changes with degrees of disc heigh t loss most pronounced at C4-5 and C5-6, and variable degrees of neural foraminal narrowing due to un covertebral joint and facet arthropathy most pronounced at C4-5 on the right. No prevertebral soft ti ssues swelling is identified. IMPRESSION: No acute traumatic intracranial or cervical spine findings. Cervical spine degenerative changes as above.
--- NOTE | 2024-03-11 20:47 | RAD REPORT ---
EXAM DESCRIPTION: Shoulder Right 2 View - 03/11/2024 8:41 pm CLINICAL HISTORY: PAIN COMPARISON: No comparisons TECHNIQUE: Internal and external rotation views of the right shoulder were obtained. FINDINGS: There is no fracture or dislocation. Mild AC joint and moderate glenohumeral joint degener ative changes with marginal spurring. No acute or suspicious findings. IMPRESSION: No acute osseous abnormality. Degenerative changes as above.
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
[2024-03-11 21:29] VITALS: BP 141/87; TEMP 98.1; O2SAT 98
== END 2024-03-11 21:19 | disposition home or self-care (01) ==
LOC: ER 19:47
DX: S40.011A Contusion of right shoulder, initial encounter (principal); W18.30XA Fall on same level, unspecified, initial encounter
CPT/HCPCS: 70450; 72125; 99284